=== PATIENT | male | born 1995 ===

== ENCOUNTER 2016-12-31 17:49 | Emergency (ER) | payer SELFPAY ==
--- NOTE | 2016-12-31 20:38 | UC ---
Jose Bradshaw Benjamin, scribed for Mary Anthony MD on 12/31/16 at 2013 . Headache HPI - HPI Summary HPI Summary: 21yo male c/o MALHOTRA with slight photophobia since yesterday. Yesterday, pt admits watching television a lot, and started to have MALHOTRA shortly after that. MALHOTRA is located on the frontal area. MALHOTRA and photophobia have resolved now. Pt reports poor vision and is planning to get eyeglasses soon for his vision. Pt also reports having some "wheezing " a couple days ago." Lastly, pt had some hives and allergies acting up since 2 weeks ago that pt has been taking zyrtec. Zyrtec has been helping but pt has ran out of them now. Hives are now resolved. No hx migraines, no trauma. No rhinorrhea, no hx sinus infections. - History Of Current Complaint Chief Complaint: UCGeneralIllness Stated Complaint: HEADACHE, EYE IRRITATION AND RASH Time Seen by Provider: 12/31/16 20:00 Hx Obtained From: Patient Onset/Duration: Sudden Onset - yesterday, Lasting Hours, Resolved Onset Of Symptoms: Sudden, Resolved Initially Headache Was: Mild, Moderate Currently Pain Is: Mild Pain Scale Used: 0-10 Numeric Timing: Constant Character: Typical Headache Location of Headache: Frontal Aggravating Factor: Bright Lights Allevating Factors: Nothing Associated Signs And Symptoms: Positive: Negative, Other (Noted In Comments) - hives on bilateral arms that started 2 weeks ago, and is now resolving. PMH/Surg Hx/FS Hx/Imm Hx Previously Healthy: Yes - Surgical History Surgical History: None - Family History Known Family History: Positive: Diabetes - Social History Occupation: Employed Full-time Lives: With Family Alcohol Use: None Substance Use Type: None Smoking Status (MU): Current Some Day Smoker Review of Systems Constitutional: Negative Skin: Other - hives on arms Eyes: Photophobia ENT: Negative Respiratory: Negative Cardiovascular: Negative Gastrointestinal: Negative Genitourinary: Negative Motor: Negative Neurovascular: Negative Musculoskeletal: Negative Neurological: Headache Psychological: Negative All Other Systems Reviewed And Are Negative: Yes Physical Exam Triage Information Reviewed: Yes Appearance: Well-Appearing, No Pain Distress, Well-Nourished Vital Signs: Initial Vital Signs Temp 98.9 F 12/31/16 18:28 Pulse 74 12/31/16 18:28 BP 128/66 12/31/16 18:28 Pulse Ox 100 12/31/16 18:28 Vital Signs Reviewed: Yes Eyes: Positive: Conjunctiva Clear, Other: - PERRL EOMI, fundi discs sharp and flat. VA 20/25 bilat ENT: Positive: TM red - left TM, Other: - no sinus tenderness. Negative: Hearing grossly normal, Pharynx normal, Tonsillar swelling, Muffled/hoarse voice Neck: Positive: Supple, Nontender Respiratory: Positive: Chest non-tender, Lungs clear, Normal breath sounds, No respiratory distress Cardiovascular: Positive: RRR, No Murmur, Pulses Normal Abdomen Description: Positive: Nontender, No Organomegaly, Soft. Negative: Distended, Guarding, McBurney's Point Tenderness, Peritoneal Signs Bowel Sounds: Positive: Present Musculoskeletal: Positive: Strength Intact, ROM Intact Neurological: Positive: Alert, Muscle Tone Normal Psychological: Positive: Age Appropriate Behavior Skin: Positive: Other - faint urticaria on bilateral arms. typical acne on bilat cheeks Headache Course/Dx - Course Course Of Treatment: Allergies noted. 21yo male c/o MALHOTRA with mild photophobia since yesterday and acne and hives from allergies on bialteral arms that started 2 weeks ago. Pt has been taking zyrtec, which has been helping, and is now in UC to get his meds filled out and get his MAHLOTRA checked. Upon examination, pt has no wheezing or any other signs of sinus infection or sever allergy. There are hives on bialteral arms that are improving. We will send meds to pt's pharmacy and will discharge pt with instructions. - Differential Dx/Diagnosis Differential Diagnosis/HQI/PQRI: Migraine, Sinus Headache, Tension Headache, Viral Syndrome, Other - eye strain Provider Diagnoses: acute urticaria. headache. acne Discharge - Discharge Plan Condition: Stable Disposition: HOME Prescriptions: Clindamycin Phosphate (Topical [Cleocin-T 1 % GEL] 1 % TOPICAL DAILY #1 gel LevoCETirizine TAB (NF) [Xyzal TAB (NF)] 5 mg PO DAILY #30 tab Minocycline (NF) 100 mg PO DAILY #30 cap Patient Education Materials: Urticaria (ED), Acne (ED), General Headache (ED) Forms: *Work Release Referrals: Adriel Cabrera MD [Primary Care Provider] - 2 Days Additional Instructions: follow up regarding your BP which was mildly elevated today. Return to urgent care if any new or worsening symptoms. The documentation as recorded by the Jose mariee Benjamin accurately reflects the service I personally performed and the decisions made by , Mary Anthony MD.
== END 2016-12-31 20:20 | disposition home or self-care (01) ==
LOC: UCEAST 17:49
DX: R51 Headache (principal); L50.0 Allergic urticaria; L70.9 Acne, unspecified; Z72.0 Tobacco use
CPT/HCPCS: 99202; G0463

== ENCOUNTER 2017-01-16 09:32 | Emergency (ER) | payer SELFPAY ==
[2017-01-16] MEDS ORDERED: Tetan/Diph/Pertus SYR(Tdap)* 0.5 ML SYR(BOOSTRIX) use SYR IM ONE (09:58)
[2017-01-16 10:01] VITALS: BP 138/77
[2017-01-16] MEDS ORDERED: Ibuprofen TAB* 600 MG PO ONE (10:33)
--- NOTE | 2017-01-16 10:54 | ED ---
Laceration/Wound HPI - HPI Summary HPI Summary: 21M presents with right thumb avulsion. He was at work and he cut his finger in the slicer when he was cutting a tomato. He does not know when his last tetanus was. He states the area continues to bleed. He has full ROM of his finger. He is right handed. - History of Current Complaint Stated Complaint: RT HAND FINGER LAC Time Seen by Provider: 01/16/17 09:57 Pain Intensity: 5 - Allergy/Home Medications Allergies/Adverse Reactions: Allergies Allergy/AdvReac Type Severity Reaction Status Date / Time No Known Allergies Allergy Verified 01/16/17 10:17 PMH/Surg Hx/FS Hx/Imm Hx Endocrine/Hematology History: Denies: Hx Diabetes, Hx Thyroid Disease Cardiovascular History: Denies: Hx Hypertension Respiratory History: Denies: Hx Asthma, Hx Chronic Obstructive Pulmonary Disease (COPD) GI History: Denies: Hx Ulcer Infectious Disease History: No Infectious Disease History: Denies: Hx Clostridium Difficile, Hx Hepatitis, Hx Human Immunodeficiency Virus (HIV), Hx of Known/Suspected MRSA, Hx Shingles, Hx Tuberculosis, Hx Known/ Suspected VRE, Hx Known/Suspected VRSA, History Other Infectious Disease, Traveled Outside the in Last 30 Days - Family History Known Family History: Positive: Diabetes - Social History Alcohol Use: None Substance Use Type: Reports: None Smoking Status (MU): Current Some Day Smoker Review of Systems Negative: Fever Negative: Chest Pain Negative: Shortness Of Breath Positive: Other - avulsion of right thumb All Other Systems Reviewed And Are Negative: Yes Physical Exam Triage Information Reviewed: Yes Vital Signs On Initial Exam: Initial Vitals Temp Pulse Resp BP Pulse Ox 98.9 F 92 17 146/85 98 01/16/17 09:38 01/16/17 09:38 01/16/17 09:38 01/16/17 09:38 01/16/17 09:38 Vital Signs Reviewed: Yes Appearance: Positive: Well-Appearing Skin: Positive: Warm, Dry, Other - small avulsion of distal tip of right thumb Head/Face: Positive: Normal Head/Face Inspection Eyes: Positive: Normal, Conjunctiva Clear Respiratory/Lung Sounds: Positive: Clear to Auscultation, Breath Sounds Present Cardiovascular: Positive: Normal, RRR Musculoskeletal: Positive: Strength/ROM Intact - right thumb, Other - good pulses, Procedures - Laceration/Wound Repair 1 Location: Other - right thumb Description: Irregular Length, Depth and Shape: 1/2cm by 1cm avulsion of distal tip of right thumb Irrigated w/ Saline (ccs): 100 Closure: Skin Adhesive - absorbable hemostat placed Sterile Dressing Applied?: No - pressure dressing applied Diagnostics - Vital Signs Vital Signs Temp Pulse Resp BP Pulse Ox 01/16/17 09:59 100 F 93 18 138/77 100 01/16/17 09:38 98.9 F 92 17 146/85 98 - Laboratory Lab Statement: Any lab studies that have been ordered have been reviewed, and results considered in the medical decision making process. Laceration Repair Course/Dx - Course Course Of Treatment: 21M presents with right thumb avulsion. He was at work and he cut his finger in the slicer when he was cutting a tomato. He does not know when his last tetanus was so gave him one. He states the area continues to bleed so placed hemostat absorbable and placed pressure dressing and bleed resolved. patient understands and agrees with plan - Differential Dx Differental Diagnoses: Abrasion, Avulsion, Laceration - Clinical Impression Provider Diagnoses: Avulsion of skin of right thumb Discharge - Discharge Plan Condition: Good Disposition: HOME Patient Education Materials: Skin Avulsion (ED) Referrals: Adriel Cabrera MD [Primary Care Provider] - Additional Instructions: Keep area in pressure dressing for 24 hours, after 24 hours check for sign of infection leaving absorbable hemostat on wound and rewrap with pressure dressing for another 24 hours Keep area covered after 48 hours Can soak area in 5 days to try remove absorbable hemostat if would like Follow up with primary within 5 days Return to ED if develop any signs of infection such as fever, spreading redness , or pus formation or if bleed through pressure dressing or any new or worsening symptoms
== END 2017-01-16 11:02 | disposition home or self-care (01) ==
LOC: ED 09:32
DX: S61.011A Laceration without foreign body of right thumb without damage to nail, initial encounter (principal); W26.0XXA Contact with knife, initial encounter; Y93.9 Activity, unspecified; Y92.9 Unspecified place or not applicable; Y99.9 Unspecified external cause status; Z72.0 Tobacco use
CPT/HCPCS: 90471; 90715; 99281; A9270-GY

== ENCOUNTER 2018-11-23 23:05 | Emergency (ER) | payer MEDICAID, OTHER ==
[2018-11-24 00:01] LABS: Urine Appearance Clear; Urine Bilirubin Negative (Negative); Urine Blood Negative (Negative); Urine Color Straw; Urine Glucose Negative (Negative); Urine Ketones Negative (Negative); Urine Nitrite Negative (Negative); Urine Protein Negative (Negative); Urine Specific Gravity 1.013 (1.010-1.030); Urine Urobilinogen Negative (Negative)
[2018-11-24 00:11] LABS: Hematocrit 44 % (36-46); Hemoglobin 13.8 g/dL (14.0-18.0); Mean Corpuscular HGB Conc 31 g/dL (31-36); Mean Corpuscular Hemoglobin 21 pg (27-31); Mean Corpuscular Volume 67 fL (80-94); Mean Platelet Volume 7.2 fL (7.4-10.4); Platelet Count 332 10^3/uL (150-450); Red Cell Distribution Width 15 % (10.5-15); White Blood Count 10.3 10^3/uL (3.5-10.8)
[2018-11-24 00:18] LABS: ALT 32 U/L (7-52); AST 39 U/L (13-39); Albumin 4.8 g/dL (3.2-5.2); Albumin/Globulin Ratio 1.6 (1-3); Alkaline Phosphatase 82 U/L (34-104); Anion Gap 5 mmol/L (2-11); BUN/Creatinine Ratio 13.3 (8-20); Blood Urea Nitrogen 15 mg/dL (6-24); CO2 Carbon Dioxide 24 mmol/L (22-32); Calcium 9.5 mg/dL (8.6-10.3); Chloride 105 mmol/L (101-111); EGFR African American 97.3 (>60); EGFR Non-African American 80.4 (>60); Glucose 104 mg/dL (70-100); Potassium 4.1 mmol/L (3.5-5.0); Sodium 134 mmol/L (135-145); Total Protein 7.8 g/dL (6.4-8.9)
[2018-11-24 00:22] LABS: Urine Benzodiazepine Screen None Detected (None Detect); Urine Opiates Screen None Detected (None Detect)
[2018-11-24 00:24] LABS: Acetaminophen < 15 mcg/mL; Alcohol < 10 mg/dL (<10); Salicylate < 2.50 mg/dL (<30)
[2018-11-24 00:39] LABS: TSH (Thyroid Stimulating Horm) 0.32 mcIU/mL (0.34-5.60)
[2018-11-24 00:47] LABS: ABS Basophils 0 10^3/ul (0-0.2); ABS Eosinophils 0.1 10^3/ul (0-0.6); ABS Lymphocytes 0.8 10^3/ul (1.0-4.8); ABS Monocytes 0.6 10^3/ul (0-0.8); ABS Neutrophils 8.8 10^3/ul (1.5-7.7); ABS Nucleated RBC 0 10^3/ul; Eosinophil % 0.5 %; Lymphocyte % 7.7 %; Microcytosis 2+; Nucleated Red Blood Cells % 0
--- NOTE | 2018-11-24 01:36 | ED ---
Medical Screening - HPI Summary HPI Summary: Patient brought by [facility] 11/02/40 due to statements of SI. Patient currently denies SI, states he was feeling emotional to time. Denies prior history of SI thoughts or attempts. Denies EtOH, recreational drug use other than marijuana use 4 hours ago. Denies any symptoms of illness, injury or pain. Medical history is none. Denies any prior mental health diagnosis. - History of Current Complaint Chief Complaint: EDMentalHealth Stated Complaint: 941 MHE PER POLICE Time Seen by Provider: 11/23/18 23:35 Onset/Duration: Started Hours Ago PMH/Surg Hx/FS Hx/Imm Hx Endocrine/Hematology History: Denies: Hx Diabetes, Hx Thyroid Disease Cardiovascular History: Denies: Hx Hypertension Respiratory History: Denies: Hx Asthma, Hx Chronic Obstructive Pulmonary Disease (COPD) GI History: Denies: Hx Ulcer History: Denies: Hx Dialysis Sensory History: Denies: Hx Eye Prosthesis Opthamlomology History: Denies: Hx Legally Blind Neurological History: Denies: Hx Dementia Psychiatric History: Denies: Hx Autism, Hx Eating Disorder, Hx of Violent Episodes Against Others - Immunization History Date of Tetanus Vaccine: utd Date of Influenza Vaccine: fall 2017 Infectious Disease History: No Infectious Disease History: Denies: Hx Clostridium Difficile, Hx Hepatitis, Hx Human Immunodeficiency Virus (HIV), Hx of Known/Suspected MRSA, Hx Shingles, Hx Tuberculosis, Hx Known/ Suspected VRE, Hx Known/Suspected VRSA, History Other Infectious Disease, Traveled Outside the [place] in Last 30 Days - Family History Known Family History: Positive: Diabetes - Social History Alcohol Use: None Substance Use Type: Reports: Marijuana Substance Use Comment - Amount & Last Used: small amount at 2030 Smoking Status (MU): Former Smoker Review of Systems Constitutional: Negative Eyes: Negative ENT: Negative Cardiovascular: Negative Respiratory: Negative Gastrointestinal: Negative Genitourinary: Negative Musculoskeletal: Negative Skin: Negative Neurological: Negative Psychological: Normal All Other Systems Reviewed And Are Negative: Yes Physical Exam - Summary Physical Exam Summary: Patient alert and oriented, cooperative with exam. Response coherently. Physical exam unremarkable. Triage Information Reviewed: Yes Vital Signs On Initial Exam: Initial Vitals Temp Pulse Resp BP Pulse Ox 99.5 F 108 20 169/99 99 11/23/18 23:06 11/23/18 23:06 11/23/18 23:06 11/23/18 23:06 11/23/18 23:06 Vital Signs Reviewed: Yes Appearance: Positive: Well-Appearing Skin: Positive: Warm Head/Face: Positive: Normal Head/Face Inspection Eyes: Positive: Normal ENT: Positive: Normal ENT inspection Neck: Positive: Supple Respiratory/Lung Sounds: Positive: Clear to Auscultation Cardiovascular: Positive: Normal Abdomen Description: Positive: Nontender Musculoskeletal: Positive: Normal Neurological: Positive: Normal Psychiatric: Positive: Normal AVPU Assessment: Alert - Francheska Coma Scale Best Eye Response: 4 - Spontaneous Best Motor Response: 6 - Obeys Commands Best Verbal Response: 5 - Oriented Coma Scale Total: 15 Diagnostics - Vital Signs Vital Signs Temp Pulse Resp BP Pulse Ox 11/23/18 23:06 99.5 F 108 20 169/99 99 - Laboratory Lab Results: Lab Results 11/23/18 11/23/18 11/23/18 Range/Units 23:45 23:45 23:51 WBC 10.3 (3.5-10.8) 10^3/uL RBC 6.60 H (4.18-5.48) 10^6 /uL Hgb 13.8 L (14.0-18.0) g/dL Hct 44 (36-46) % MCV 67 L (80-94) fL MCH 21 L (27-31) pg MCHC 31 (31-36) g/dL RDW 15 (10.5-15) % Plt Count 332 (150-450) 10^3/uL MPV 7.2 L (7.4-10.4) fL Neut % (Auto) 85.6 % Lymph % (Auto) 7.7 % [place] % (Auto) 6.0 % Eos % (Auto) 0.5 % Baso % (Auto) 0.2 % Absolute Neuts (auto) 8.8 H (1.5-7.7) 10^3/ul Absolute Lymphs (auto) 0.8 L (1.0-4.8) 10^3/ul Absolute Monos (auto) 0.6 (0-0.8) 10^3/ul Absolute Eos (auto) 0.1 (0-0.6) 10^3/ul Absolute Basos (auto) 0 (0-0.2) 10^3/ul Absolute Nucleated RBC 0 10^3/ul Nucleated RBC % 0 Hypochromasia 1+ Microcytosis 2+ Hem Pathologist Commnt Pending Sodium (135-145) mmol/L Potassium (3.5-5.0) mmol/L Chloride (101-111) mmol/L Carbon Dioxide (22-32) mmol/L Anion Gap (2-11) mmol/L BUN (6-24) mg/dL Creatinine (0.67-1.17) mg/dL Est GFR ( Amer) (>60) Est GFR (Non-Af Amer) (>60) BUN/Creatinine Ratio (8-20) Glucose (70-100) mg/dL Calcium (8.6-10.3) mg/dL Total Bilirubin (0.2-1.0) mg/dL AST (13-39) U/L ALT (7-52) U/L Alkaline Phosphatase (34-104) U/L Total Protein (6.4-8.9) g/dL Albumin (3.2-5.2) g/dL Globulin (2-4) g/dL Albumin/Globulin Ratio (1-3) TSH (0.34-5.60) mcIU/mL Urine Color Straw Urine Appearance Clear Urine pH 6.0 (5-9) Ur Specific [place] 1.013 (1.010-1.030) Urine Protein Negative (Negative) Urine Ketones Negative (Negative) Urine Blood Negative (Negative) Urine Nitrate Negative (Negative) Urine Bilirubin Negative (Negative) Urine Urobilinogen Negative (Negative) Ur Leukocyte Esterase Negative (Negative) Urine Glucose Negative (Negative) Salicylates (<30) mg/dL Urine Opiates Screen None detected (None Detect) Acetaminophen mcg/mL Ur Barbiturates Screen None detected (None Detect) Ur Phencyclidine Scrn None detected (None Detect) Ur Amphetamines Screen None detected (None Detect) U Benzodiazepines Scrn None detected (None Detect) Urine Cocaine Screen None detected (None Detect) U Cannabinoids Screen Presumptive positive A (None Detect) Serum Alcohol (<10) mg/dL 11/23/18 Range/Units 23:51 WBC (3.5-10.8) 10^3/uL RBC (4.18-5.48) 10^6 /uL Hgb (14.0-18.0) g/dL Hct (36-46) % MCV (80-94) fL MCH (27-31) pg MCHC (31-36) g/dL RDW (10.5-15) % Plt Count (150-450) 10^3/uL MPV (7.4-10.4) fL Neut % (Auto) % Lymph % (Auto) % [place] % (Auto) % Eos % (Auto) % Baso % (Auto) % Absolute Neuts (auto) (1.5-7.7) 10^3/ul Absolute Lymphs (auto) (1.0-4.8) 10^3/ul Absolute Monos (auto) (0-0.8) 10^3/ul Absolute Eos (auto) (0-0.6) 10^3/ul Absolute Basos (auto) (0-0.2) 10^3/ul Absolute Nucleated RBC 10^3/ul Nucleated RBC % Hypochromasia Microcytosis Hem Pathologist Commnt Sodium 134 L (135-145) mmol/L Potassium 4.1 (3.5-5.0) mmol/L Chloride 105 (101-111) mmol/L Carbon Dioxide 24 (22-32) mmol/L Anion Gap 5 (2-11) mmol/L BUN 15 (6-24) mg/dL Creatinine 1.13 (0.67-1.17) mg/dL Est GFR ( Amer) 97.3 (>60) Est GFR (Non-Af Amer) 80.4 (>60) BUN/Creatinine Ratio 13.3 (8-20) Glucose 104 H (70-100) mg/dL Calcium 9.5 (8.6-10.3) mg/dL Total Bilirubin 0.30 (0.2-1.0) mg/dL AST 39 (13-39) U/L ALT 32 (7-52) U/L Alkaline Phosphatase 82 (34-104) U/L Total Protein 7.8 (6.4-8.9) g/dL Albumin 4.8 (3.2-5.2) g/dL Globulin 3.0 (2-4) g/dL Albumin/Globulin Ratio 1.6 (1-3) TSH 0.32 L (0.34-5.60) mcIU/mL Urine Color Urine Appearance Urine pH (5-9) Ur Specific [place] (1.010-1.030) Urine Protein (Negative) Urine Ketones (Negative) Urine Blood (Negative) Urine Nitrate (Negative) Urine Bilirubin (Negative) Urine Urobilinogen (Negative) Ur Leukocyte Esterase (Negative) Urine Glucose (Negative) Salicylates < 2.50 (<30) mg/dL Urine Opiates Screen (None Detect) Acetaminophen < 15 mcg/mL Ur Barbiturates Screen (None Detect) Ur Phencyclidine Scrn (None Detect) Ur Amphetamines Screen (None Detect) U Benzodiazepines Scrn (None Detect) Urine Cocaine Screen (None Detect) U Cannabinoids Screen (None Detect) Serum Alcohol < 10 (<10) mg/dL Result Diagrams: 11/23/18 23:51 11/23/18 23:51 Lab Statement: Any lab studies that have been ordered have been reviewed, and results considered in the medical decision making process. Course/Dx - Course Course Of Treatment: Patient brought by [facility] 11/02/40 due to statements of SI. Patient currently denies SI, states he was feeling emotional to time. Denies prior history of SI thoughts or attempts. Denies EtOH, recreational drug use other than marijuana use 4 hours ago. Denies any symptoms of illness, injury or pain. Medical history is none. Denies any prior mental health diagnosis. Physical exam:Patient alert and oriented, cooperative with exam. Response coherently. Physical exam unremarkable. Vital signs within normal limits. Labs unremarkable. Mental health evaluation recommends diagnosis of adjustment disorder and discharge home. - Diagnoses Provider Diagnoses: Adjustment disorder Discharge - Sign-Out/Discharge Documenting (check all that apply): Patient Departure Patient Received Moderate/Deep Sedation with Procedure: No - Discharge Plan Condition: Stable Disposition: HOME Patient Education Materials: Mood Disorders (ED), Help Prevent Suicide (ED) Referrals: No Primary Care Phys,NOPCP [Primary Care Provider] - - Billing Disposition and Condition Condition: STABLE Disposition: Home
[2018-11-24 02:46] VITALS: BP 159/78
== END 2018-11-24 02:38 | disposition home or self-care (01) ==
LOC: ED 23:05
DX: F43.20 Adjustment disorder, unspecified (principal); Z87.891 Personal history of nicotine dependence
CPT/HCPCS: 36415; 80053; 80307; 80320; 80329; 81003; 84443; 85025; 85060; 99285; G0480